=== PATIENT | female | born 1940 | race Caucasian/White ===

== ENCOUNTER 2016-07-13 06:48 | Inpatient (IN) | payer OTHER, MEDICAID, MEDICARE ==
[2016-07-13] VITALS (9 sets, daily range): BP systolic 104–160; BP diastolic 55–75; PULSE 66–100; RESP 14–18; TEMP 97.6–102.8; O2SAT 95–98
[~2016-07-13] VITALS: Ht 160 cm; Wt 100.2 kg
[~2016-07-13 06:48] MED LIST: AMLO5TAB96 PO; ATEN1TAB73 PO; DYAZ37.52 PO; GABA300 PO; MECL25 PO; PHEN60TA PO; ZOCO80TA PO
[2016-07-13] MEDS ORDERED: CEFEPIME INJ 2,000 MG in SODIUM CHLORIDE 0.9% INJ 100 ML IV STA (07:15)
[2016-07-13] MEDS ORDERED: ACETAMINOPHEN 325 MG TAB PO ONE (07:15)
[2016-07-13] MEDS ORDERED: SODIUM CHLOR 0.9% 1000 ML INJ 1,000 ML IV ONE (07:15)
--- NOTE | 2016-07-13 07:44 | RADRPT ---
EXAM DATE/TIME: 07/13/2016 07:33 [facility] COMPARISON: No previous studies available for comparison. INDICATIONS : Fever. MEDICAL HISTORY : None. SURGICAL HISTORY : None. ENCOUNTER: Initial ACUITY: 1 day PAIN SCORE: 0/10 LOCATION: chest FINDINGS: 2 AP views of the chest. The lungs are clear. Cardiomediastinal silhouette within normal limits. No e vidence of pleural effusion or pneumothorax. CONCLUSION: No acute cardiopulmonary disease identified. Car Munoz MD on July 13, 2016 at 7:40 Board Certified Radiologist. This report was verified electronically.
--- NOTE | 2016-07-13 07:55 | RADRPT ---
EXAM DATE/TIME: 07/13/2016 07:36 [facility] COMPARISON: CT BRAIN W/O CONTRAST, January 16, 2011, 15:24. INDICATIONS : Dizziness. RADIATION DOSE: 56.35 CTDIvol (mGy) MEDICAL HISTORY : Seizures. Hypertension. Chronic obstructive pulmonary disease. SURGICAL HISTORY : Thyroid tumor removed. ENCOUNTER: Initial ACUITY: 1 week PAIN SCALE: 0/10 LOCATION: cranial TECHNIQUE: Multiple contiguous axial images were obtained of the head. Using automated exposure control and adj ustment of the mA and/or kV according to patient size, radiation dose was kept as low as reasonably a chievable to obtain optimal diagnostic quality images. FINDINGS: CEREBRUM: The ventricles are normal for age. No evidence of midline shift, mass lesion, hemorrhage or acute in farction. No extra-axial fluid collections are seen. POSTERIOR FOSSA: The cerebellum and brainstem are intact. The 4th ventricle is midline. The cerebellopontine angle i s unremarkable. EXTRACRANIAL: The visualized portion of the orbits is intact. SKULL: The calvaria is intact. No evidence of skull fracture. CONCLUSION: No acute intracranial findings. Car Munoz MD on July 13, 2016 at 7:51 Board Certified Radiologist. This report was verified electronically.
[2016-07-13 08:08] LABS: AUTOMATED NEUTROPHIL # 10.7 TH/MM3 (1.8-7.7); BASOPHIL % 0.4 % (0.0-2.0); EOSINOPHIL % 0.1 % (0.0-4.0); HEMATOCRIT 37.8 % (35.0-46.0); HEMO FLAGS DIFF FINAL; LYMPHOCYTE # 0.6 TH/MM3 (1.0-4.8); MEAN CELL VOLUME 92.5 FL (80.0-100.0); MEAN CORPUSCULAR HEMOGLOBIN 31.5 PG (27.0-34.0); MEAN CORPUSCULAR HGB CONC 34.1 % (32.0-36.0); MONO % 9.3 % (0.0-8.0); NEUT % 85.2 % (16.0-70.0); PLATELET COUNT 229 TH/MM3 (150-450); RED BLOOD COUNT 4.08 MIL/MM3 (4.00-5.30); RED CELL DISTRIBUTION WIDTH 13.1 % (11.6-17.2); WHITE BLOOD COUNT 12.5 TH/MM3 (4.0-11.0)
[2016-07-13 08:17] LABS: APTT (PATIENT) 34.5 SEC (24.3-30.1)
[2016-07-13 08:30] LABS: ALT (GPT) 27 U/L (10-53); ANION GAP 8 MEQ/L (5-15); AST (GOT) 53 U/L (15-37); BICARBONATE 27.7 MEQ/L (21.0-32.0); BLOOD UREA NITROGEN 17 MG/DL (7-18); CHLORIDE 95 MEQ/L (98-107); GLOMERULAR FILTRATION RATE 60 ML/MIN (>89); POTASSIUM 3.6 MEQ/L (3.5-5.1); SODIUM (NA) 131 MEQ/L (136-145)
[2016-07-13 08:44] LABS: ALKALINE PHOSPHATASE 89 U/L (45-117); CREATINE KINASE 1310 U/L (26-192); TOTAL BILIRUBIN ADULT 0.5 MG/DL (0.2-1.0)
[2016-07-13 08:56] LABS: CKMB 1.8 NG/ML (0.5-3.6)
[2016-07-13 09:10] LABS: BACTERIA, URINE FEW /hpf; BLOOD, URINE MOD (NEG); COMMENT (UR) CATH-CULTURE IND; CULTURE IF INDICATED CATH CULTURE IND; GLUCOSE,URINE NEG (NEG); KETONE, URINE NEG (NEG); MUCUS URINE FEW /lpf (OCC); NITRITE,URINE NEG (NEG); SQUAMOUS EPITHELIAL CELL URINE 1 /hpf (0-5); URINE COLOR YELLOW (YELLW/STRAW)
[2016-07-13] MEDS ORDERED: KETOROLAC TROMETHAMINE 30 MG/ML (IVP) VIAL IV PUSH ONE (09:30)
--- NOTE | 2016-07-13 09:39 | PD ---
HPI Chief Complaint: Fall Time Seen by Provider: 07:02 Travel History International Travel<30 days: No Contact w/Intl Traveler<30days: No Traveled to known affect area: No History of Present Illness HPI Patient is a 75 year old female who comes in after a fall at her assisted living. She says for the past 2 weeks she has been feeling dizzy and falling. She fell two weeks ago, but did not come to the hospital. She says today she went to the bathroom and became very dizzy and fell onto her back. She says she hit her head on the carpet, but denies any LOC. She denies any chest pain or SOB. She denies cough. She says she has been urinating frequently. PFSH Past Medical History Hx Anticoagulant Therapy: Yes (BABY ASA) Heart Rhythm Problems: Yes Cardiac Catheterization: No Cardiovascular Problems: Yes (htn) High Cholesterol: Yes Congestive Heart Failure: No Cerebrovascular Accident: Yes (TIA) Diminished Hearing: No Genitourinary: Yes (URGENCY-FREQUENCY) Hypertension: Yes Musculoskeletal: Yes (DISCS REMOVED MANY YEARS AGO) Neurologic: Yes (NEUROPATHY) Respiratory: Yes (COPD) Immunizations Current: Yes Migraines: Yes (RECENT DIAGNOSIS OF "SILENT MIGRAINES" PER NEUROLOGIST) Myocardial Infarction: No Seizures: Yes Menopausal: Yes Past Surgical History Cholecystectomy: Yes Coronary Artery Bypass Graft: No Hysterectomy: Yes Other Surgery: Yes (THYROID TUMOR REMOVED) Social History Alcohol Use: No Tobacco Use: No Substance Use: No Allergies-Medications (Allergen,Severity, Reaction): Coded Allergies: Latex (Verified Allergy, Intermediate, Anaphylaxis, 07/13/16) Iodine (Verified Allergy, Unknown, 07/13/16) Shellfish (Verified Adverse Reaction, Severe, Anaphylaxis, 07/13/16) Codeine (Verified Adverse Reaction, Intermediate, HEADACHE, 07/13/16) Sulfa (Verified Adverse Reaction, Intermediate, VOMITING, 07/13/16) Reported Meds & Prescriptions Reported Meds & Active Scripts Active Reported Phenobarbital 64.8 Mg Tab 129.6 Mg PO HS Triamterene-Hydrochlorothiazide 37.5-25 Mg Cap 1 Cap PO DAILY Simvastatin 80 Mg Tab 80 Mg PO HS Meclizine 25 (Meclizine HCl) 25 Mg Tab 25 Mg PO TID Gabapentin 300 Mg Cap 300 Mg PO BID Atenolol 25 Mg Tab 25 Mg PO DAILY Amlodipine (Amlodipine Besylate) 5 Mg Tab 5 Mg PO BID Review of Systems Except as stated in HPI: all other systems reviewed are Neg General / Constitutional: Positive: Fever Eyes: No: Diploplia HENT: Positive: Vertigo, Lightheadedness, No: Headaches Cardiovascular: No: Chest Pain or Discomfort Respiratory: No: Shortness of Breath Gastrointestinal: No: Nausea, Vomiting, Abdominal Pain Genitourinary: Positive: Urgency, Frequency, No: Dysuria Musculoskeletal: No: Pain Skin: Positive Other (skin tears) Neurologic: No: Weakness, Dizziness Physical Exam Narrative GENERAL: Awake and alert, in no acute distress. SKIN: Focused skin assessment warm/dry. Skin tear to left upper arm. HEAD: Atraumatic. Normocephalic. EYES: Pupils equal and round. No scleral icterus. No injection or drainage. ENT: No nasal bleeding or discharge. Mucous membranes pink and moist. NECK: Trachea midline. No JVD. CARDIOVASCULAR: Regular rate and rhythm. No murmur appreciated. RESPIRATORY: No accessory muscle use. Clear to auscultation. Breath sounds equal bilaterally. GASTROINTESTINAL: Abdomen soft, non-tender, nondistended. MUSCULOSKELETAL: No obvious deformities. No clubbing. No cyanosis. No edema. No tenderness to palpation along the cervical, thoracic or lumbar spine. NEUROLOGICAL: Awake and alert. No obvious cranial nerve deficits. Motor grossly within normal limits. Normal speech. PSYCHIATRIC: Appropriate mood and affect; insight and judgment normal. Data Data Last Documented VS Vital Signs Date Time Temp Pulse Resp B/P Pulse Ox O2 Delivery O2 Flow Rate FiO2 07/13/16 10:38 98.4 70 16 104/73 98 Nasal Cannula 2 Orders Electrocardiogram (07/13/16 07:15) Complete Blood Count With Diff (07/13/16 07:15) Comprehensive Metabolic Panel (07/13/16 07:15) Prothrombin Time / Inr (Pt) (07/13/16 07:15) Act Partial Throm Time (Ptt) (07/13/16 07:15) Lactic Acid Sepsis Protocol (07/13/16 07:15) Ckmb (Isoenzyme) Profile (07/13/16 07:15) Troponin I (07/13/16 07:15) Urinalysis - C+S If Indicated (07/13/16 07:15) Ua Includes Microscopic (07/13/16 07:15) Blood Culture (07/13/16 07:15) Chest, Single Ap (07/13/16 07:15) Ecg Monitoring (07/13/16 07:15) Iv Access Insert/Monitor (07/13/16 07:15) Oximetry (07/13/16 07:15) Acetaminophen (Tylenol) (07/13/16 07:15) Cefepime Inj (Maxipime Inj) (07/13/16 07:15) Sodium Chlor 0.9% 1000 Ml Inj (Ns 1000 M (07/13/16 07:15) Ct Brain W/O Iv Contrast(Rout) (07/13/16 ) Cath For Specimen (07/13/16 07:29) CKMB (07/13/16 06:57) CKMB% (07/13/16 06:57) Urine Culture (07/13/16 09:00) Ketorolac Inj (Toradol Inj) (07/13/16 09:30) Admit Order (Ed Use Only) (07/13/16 ) Labs Laboratory Tests Test 07/13/16 07/13/16 06:57 09:00 Prothrombin Time 11.0 SEC Prothromb Time International 1.0 RATIO Ratio Activated Partial 34.5 SEC Thromboplast Time Sodium Level 131 MEQ/L Potassium Level 3.6 MEQ/L Chloride Level 95 MEQ/L Carbon Dioxide Level 27.7 MEQ/L Anion Gap 8 MEQ/L Blood Urea Nitrogen 17 MG/DL Creatinine 0.92 MG/DL Estimat Glomerular Filtration 60 ML/MIN Rate Random Glucose 138 MG/DL Lactic Acid Level 1.2 mmol/L Calcium Level 8.6 MG/DL Total Bilirubin 0.5 MG/DL Aspartate Amino Transf 53 U/L (AST/SGOT) Alanine Aminotransferase 27 U/L (ALT/SGPT) Alkaline Phosphatase 89 U/L Total Creatine Kinase 1310 U/L Creatine Kinase MB 1.8 NG/ML Creatine Kinase MB % 0.1 % Troponin I LESS THAN 0.02 NG/ML Total Protein 6.9 GM/DL Albumin 2.9 GM/DL White Blood Count 12.5 TH/MM3 Red Blood Count 4.08 MIL/MM3 Hemoglobin 12.9 GM/DL Hematocrit 37.8 % Mean Corpuscular Volume 92.5 FL Mean Corpuscular Hemoglobin 31.5 PG Mean Corpuscular Hemoglobin 34.1 % Concent Red Cell Distribution Width 13.1 % Platelet Count 229 TH/MM3 Mean Platelet Volume 8.4 FL Neutrophils (%) (Auto) 85.2 % Lymphocytes (%) (Auto) 5.0 % Monocytes (%) (Auto) 9.3 % Eosinophils (%) (Auto) 0.1 % Basophils (%) (Auto) 0.4 % Neutrophils # (Auto) 10.7 TH/MM3 Lymphocytes # (Auto) 0.6 TH/MM3 Monocytes # (Auto) 1.2 TH/MM3 Eosinophils # (Auto) 0.0 TH/MM3 Basophils # (Auto) 0.0 TH/MM3 CBC Comment DIFF FINAL Differential Comment Urine Color YELLOW Urine Turbidity HAZY Urine pH 6.0 Urine Specific [place] 1.012 Urine Protein 30 mg/dL Urine Glucose (UA) NEG mg/dL Urine Ketones NEG mg/dL Urine Occult Blood MOD Urine Nitrite NEG Urine Bilirubin NEG Urine Urobilinogen LESS THAN 2.0 MG/DL Urine Leukocyte Esterase LARGE Urine RBC 16 /hpf Urine WBC 165 /hpf Urine WBC Clumps MOD Urine Squamous Epithelial 1 /hpf Cells Urine Bacteria FEW /hpf Urine Mucus FEW /lpf Microscopic Urinalysis Comment CATH-CULTURE IND MDM Medical Decision Making Medical Screen Exam Complete: Yes Emergency Medical Condition: Yes Medical Record Reviewed: Yes Interpretation(s) ECG shows NSR at 84, no ST elevation. Slight ST depression in V4-V6 (less than 0.5mm). Differential Diagnosis Electrolyte abnormality versus sepsis versus pneumonia versus UTI versus CVA Narrative Course Patient is a 75-year-old female comes in after a fall today. She is found to be febrile on arrival. IV established, labs sent. Labs showed elevated white blood cell count. Urinalysis is positive for UTI. CT head and chest x-ray showed no acute abnormalities. Patient given IV fluids, cefepime, Tylenol. She'll be admitted for further management. Diagnosis Primary Impression: UTI (urinary tract infection) Qualified Code: N30.00 - Acute cystitis without hematuria Additional Impression: Sepsis Qualified Code: A41.9 - Sepsis, due to unspecified organism Admitting Information Admitting Physician Requests: Admit Condition: Stable Rena Stahl MD Jul 13, 2016 09:39
[2016-07-13] MEDS ORDERED: SODIUM CHLORIDE 0.9% FLUSH 10 ML FLUSH IV FLUSH PRN (10:45)
[2016-07-13] MEDS ORDERED: MAGNESIUM HYDROXIDE SUSP 30 ML CUP PO PRN (10:45)
[2016-07-13] MEDS ORDERED: NALOXONE HCL 0.4 MG/ML AMP IV PRN (10:45)
[2016-07-13] MEDS ORDERED: ONDANSETRON HCL 4 MG/2 ML VIAL IVP PRN (10:45)
[2016-07-13] MEDS ORDERED: BISACODYL 10 MG SUPP RECTAL PRN (10:45)
[2016-07-13] MEDS ORDERED: SENNOSIDES 8.6 MG TAB PO PRN (10:45)
[2016-07-13] MEDS ORDERED: LACTULOSE SYRUP 20 GM/30 ML CUP PO PRN (10:45)
--- NOTE | 2016-07-13 11:44 | HHI.HP ---
[facility] Service [place] [facility] Primary Care Physician Non-Staff Admission Diagnosis UTI, weakness Diagnoses: (1) Weakness Diagnosis: Principal (2) Sepsis Diagnosis: Principal (3) UTI (urinary tract infection) Diagnosis: Principal (4) Frequent falls Diagnosis: Principal Travel History International Travel<30 Days: No Contact w/Intl Traveler <30 Da: No Traveled to Known Affected Are: No Sepsis Criteria SIRS Criteria (2 or more): Temp > 100.9 or < 96.8, Heart rate over 90, WBC > 29052, < 4000 or > 10% bands Sepsis Criteria (SIRS+source): Infect source susp/known History of Present Illness Mrs. Ortez is a 75-year-old female. She came to the hospital after having a follow home. No fractures are found. She does have some minor lacerations of the left arm and some minor skin abrasions throughout the body. Fever is present along with tachycardia and leukocytosis. Urinary tract infection is found. Patient meets sepsis criteria. No evidence of severe sepsis or septic shock. She is also hyponatremic and has rhabdomyolysis. A slight medical conditions are hypertension hyperlipidemia history of TIA neuropathy COPD and seizure history. She reports that she has had urinary tract infections fairly frequently in the past. She has smoked in the past but is not currently smoking. No other complaints are present at this time. No head trauma. Review of Systems Constitutional: COMPLAINS OF: Fatigue, Fever, DENIES: Chills Eyes: DENIES: Blurred vision, Diplopia Respiratory: DENIES: Cough, Wheezing, Shortness of breath Cardiovascular: DENIES: Chest pain, Palpitations, Syncope Gastrointestinal: DENIES: Abdominal pain, Black stools, Bloody stools Musculoskeletal: DENIES: Joint pain, Muscle aches Integumentary: DENIES: Abnormal pigmentation Hematologic/lymphatic: DENIES: Bruising Immunologic/allergic: DENIES: Eczema Neurologic: COMPLAINS OF: Abnormal gait, Poor Balance, DENIES: Headache Psychiatric: DENIES: Anxiety, Confusion Past Family Social History Past Medical History Hypertension Hyperlipidemia TIA history Uropathy COPD Seizure history Past Surgical History Discectomy Removal of thyroid tumor Cholecystectomy Hysterectomy Reported Medications Reported Meds & Active Scripts Active Allergies: Coded Allergies: Latex (Verified Allergy, Intermediate, Anaphylaxis, 07/13/16) Iodine (Verified Allergy, Unknown, 07/13/16) Shellfish (Verified Adverse Reaction, Severe, Anaphylaxis, 07/13/16) Codeine (Verified Adverse Reaction, Intermediate, HEADACHE, 07/13/16) Sulfa (Verified Adverse Reaction, Intermediate, VOMITING, 07/13/16) Family History Myocardial infarction and lung cancer in father Social History History of smoking, not currently smoking No alcohol or drug abuse Physical Exam Vital Signs Vital Signs Date Time Temp Pulse Resp B/P Pulse Ox O2 Delivery O2 Flow Rate FiO2 07/13/16 10:38 98.4 07/13/16 07:18 16 97 Room Air 07/13/16 06:55 102.8 97 14 160/70 95 Room Air 07/13/16 06:52 102.8 100 16 160/70 96 Physical Exam GENERAL: NAD, A&Ox3 SKIN: Warm and dry. Abrasions and superficial lacerations to left arm HEAD: Normocephalic. EYES: No scleral icterus. No injection or drainage. NECK: Supple, trachea midline. No JVD or lymphadenopathy. CARDIOVASCULAR: Regular rate and rhythm without murmurs, gallops, or rubs. RESPIRATORY: Breath sounds equal bilaterally. No accessory muscle use. GASTROINTESTINAL: Abdomen soft, non-tender, nondistended. MUSCULOSKELETAL: No cyanosis, or edema. Laboratory Laboratory Tests Test 07/13/16 07/13/16 06:57 09:00 White Blood Count 12.5 Red Blood Count 4.08 Hemoglobin 12.9 Hematocrit 37.8 Mean Corpuscular Volume 92.5 Mean Corpuscular Hemoglobin 31.5 Mean Corpuscular Hemoglobin 34.1 Concent Red Cell Distribution Width 13.1 Platelet Count 229 Mean Platelet Volume 8.4 Neutrophils (%) (Auto) 85.2 Lymphocytes (%) (Auto) 5.0 Monocytes (%) (Auto) 9.3 Eosinophils (%) (Auto) 0.1 Basophils (%) (Auto) 0.4 Neutrophils # (Auto) 10.7 Lymphocytes # (Auto) 0.6 Monocytes # (Auto) 1.2 Eosinophils # (Auto) 0.0 Basophils # (Auto) 0.0 CBC Comment DIFF FINAL Differential Comment Prothrombin Time 11.0 Prothromb Time International 1.0 Ratio Activated Partial 34.5 Thromboplast Time Sodium Level 131 Potassium Level 3.6 Chloride Level 95 Carbon Dioxide Level 27.7 Anion Gap 8 Blood Urea Nitrogen 17 Creatinine 0.92 Estimat Glomerular Filtration 60 Rate Random Glucose 138 Lactic Acid Level 1.2 Calcium Level 8.6 Total Bilirubin 0.5 Aspartate Amino Transf 53 (AST/SGOT) Alanine Aminotransferase 27 (ALT/SGPT) Alkaline Phosphatase 89 Total Creatine Kinase 1310 Creatine Kinase MB 1.8 Creatine Kinase MB % 0.1 Troponin I LESS THAN 0.02 Total Protein 6.9 Albumin 2.9 Urine Color YELLOW Urine Turbidity HAZY Urine pH 6.0 Urine Specific [place] 1.012 Urine Protein 30 Urine Glucose (UA) NEG Urine Ketones NEG Urine Occult Blood MOD Urine Nitrite NEG Urine Bilirubin NEG Urine Urobilinogen LESS THAN 2.0 Urine Leukocyte Esterase LARGE Urine RBC 16 Urine WBC 165 Urine WBC Clumps MOD Urine Squamous Epithelial 1 Cells Urine Bacteria FEW Urine Mucus FEW Microscopic Urinalysis Comment CATH-CULTURE IND Date/Time Procedure Status Source Growth 07/13/16 09:00 Urine Culture Received Urine Catheterized Urine Pending 07/13/16 07:06 Aerobic Blood Culture Received Blood Peripheral Pending 07/13/16 07:06 Anaerobic Blood Culture Received Blood Peripheral Pending Result Diagram: 07/13/16 0657 07/13/16 0657 Imaging Last Impressions Chest X-Ray 07/13/16 0715 Signed Impressions: Service Date/Time: Wednesday, July 13, 2016 07:33 - CONCLUSION: No acute cardiopulmonary disease identified. Car Munoz MD Head CT 07/13/16 0000 Signed Impressions: Service Date/Time: Wednesday, July 13, 2016 07:36 - CONCLUSION: No acute intracranial findings. Car Muonz MD Septic Shock Reassessment Heart: Regular rate and rhythm Lungs: Clear Skin: Warm Peripheral Pulses: Bounding Right Radial Bounding Left Radial Capillary Refill: Brisk Assessment and Plan Problem List: (1) Weakness ICD Code: R53.1 Status: Acute (2) Sepsis ICD Code: A41.9 Status: Acute (3) UTI (urinary tract infection) ICD Code: N39.0 Status: Acute (4) Frequent falls ICD Code: R29.6 Status: Acute Assessment and Plan Assessment and plan 75 old female admitted with UTI and sepsis status post fall, with recurrent falls. UTI Sepsis Rocephin Probiotics Follow urine cultures Monitor for resolution of sepsis Global weakness Frequent falls This is likely secondary to sepsis PT will be started after sepsis symptoms improve Hypertension Continue baseline home treatments Follow blood pressures Adjust treatment if needed Hyperlipidemia Continue statin Follow as an outpatient COPD No exacerbation Follow clinically No change to baseline treatments TIA history Neuropathy Seizure history Follow clinically DVT prophylaxis SCDs Physician Certification 2 Midnight Certification Type: Admission for Inpatient Services Order for Inpatient Services The services are ordered in accordance with Medicare regulations or non- Medicare payer requirements, as applicable. In the case of services not specified as inpatient-only, they are appropriately provided as inpatient services in accordance with the 2-midnight benchmark. Estimated LOS (days): 2 days is the estimated time the patient will need to remain in the hospital, assuming treatment plan goals are met and no additional complications. Post-Hospital Plan: Misael Vieyra MD Jul 13, 2016 11:44
[2016-07-13] MEDS ORDERED: GABA300C5 PO (13:26)
[2016-07-13] MEDS ORDERED: MECL1TAB42 PO (13:26)
[2016-07-13] MEDS ORDERED: TRIA37.53 PO (13:26)
[2016-07-13] MEDS ORDERED: SIMV80TA PO (13:26)
[2016-07-13] MEDS ORDERED: AMLO5TAB2 PO (13:26)
[2016-07-13] MEDS ORDERED: ATEN25TA PO (13:26)
[2016-07-13] MEDS ORDERED: PHENO60 PO (13:30)
[2016-07-13] MEDS: SODIUM CHLOR 0.9% 1000 ML INJ 1,000 ML IV SCH ×2 (13:59→18:22)
[2016-07-13] MEDS: LACTOBACILLUS ACIDOPHILUS TAB PO SCH ×2 (13:59→18:00)
[2016-07-13] MEDS: cefTRIAXone INJ 1,000 MG in SODIUM CHLORIDE 0.9% INJ 100 ML IV SCH (14:30)
[2016-07-13] MEDS: ACETAMINOPHEN/HYDROcodone 325 MG/7.5 MG TAB PO PRN (18:29)
[2016-07-13] MEDS: SODIUM CHLORIDE 0.9% FLUSH 10 ML FLUSH IV FLUSH SCH (21:00)
[2016-07-13] MEDS ORDERED: GABAPENTIN 300 MG CAP PO ONE (22:45)
[2016-07-13] MEDS: PHENobarbital 32.4 MG TAB PO SCH (23:18)
[2016-07-13] MEDS: DOCUSATE SODIUM 50 MG/SENNA 8.6 MG TAB PO SCH (23:18)
[2016-07-14] VITALS (10 sets, daily range): BP systolic 104–180; BP diastolic 58–72; PULSE 66–85; RESP 16–19; TEMP 97.2–99.8; O2SAT 92–96
[2016-07-14] MEDS: SODIUM CHLOR 0.9% 1000 ML INJ 1,000 ML IV SCH ×3 (03:33→18:05)
[2016-07-14] MEDS: ACETAMINOPHEN/HYDROcodone 325 MG/7.5 MG TAB PO PRN (05:14)
[2016-07-14] MEDS: cloNIDine HCL 0.1 MG TAB PO PRN (05:36)
[2016-07-14 08:27] LABS: AUTOMATED NEUTROPHIL # 5.4 TH/MM3 (1.8-7.7); BASOPHIL % 0.5 % (0.0-2.0); EOSINOPHIL # 0.1 TH/MM3 (0-0.4); EOSINOPHIL % 1.2 % (0.0-4.0); HEMATOCRIT 30.9 % (35.0-46.0); HEMO FLAGS DIFF FINAL; LYMPHOCYTE # 0.7 TH/MM3 (1.0-4.8); MEAN CELL VOLUME 92.1 FL (80.0-100.0); MEAN CORPUSCULAR HEMOGLOBIN 31.3 PG (27.0-34.0); MEAN CORPUSCULAR HGB CONC 33.9 % (32.0-36.0); MONO % 9.7 % (0.0-8.0); NEUT % 78.6 % (16.0-70.0); PLATELET COUNT 179 TH/MM3 (150-450); RED BLOOD COUNT 3.36 MIL/MM3 (4.00-5.30); RED CELL DISTRIBUTION WIDTH 12.9 % (11.6-17.2); WHITE BLOOD COUNT 6.9 TH/MM3 (4.0-11.0)
[2016-07-14 08:53] LABS: BICARBONATE 26.4 MEQ/L (21.0-32.0); PHENOBARBITAL 20.5 MCG/ML (15.0-40.0); POTASSIUM 3.2 MEQ/L (3.5-5.1)
[2016-07-14] MEDS: MECLIZINE HCL 25 MG TAB PO SCH ×3 (09:00→18:00)
[2016-07-14] MEDS: SODIUM CHLORIDE 0.9% FLUSH 10 ML FLUSH IV FLUSH SCH ×2 (09:00→20:32)
[2016-07-14] MEDS: DOCUSATE SODIUM 50 MG/SENNA 8.6 MG TAB PO SCH ×2 (09:36→20:28)
[2016-07-14] MEDS: GABAPENTIN 300 MG CAP PO SCH ×2 (09:36→20:28)
[2016-07-14] MEDS: LACTOBACILLUS ACIDOPHILUS TAB PO SCH ×3 (09:36→17:58)
[2016-07-14] MEDS: ATENOLOL 25 MG TAB PO SCH (09:36)
[2016-07-14] MEDS: amLODIPine BESYLATE 5 MG TAB PO SCH ×2 (09:37→20:28)
[2016-07-14] MEDS ORDERED: POTASSIUM CHLORIDE 10 MEQ CONTROLLED RELEASE TAB PO ONE (10:45)
--- NOTE | 2016-07-14 11:04 | HHI.PR ---
Subjective Remarks Patient still feels weak. Physical therapy assessment pending. No new complaints. She does feel better than yesterday. She is no longer septic. Objective Vital Signs Date Time Temp Pulse Resp B/P Pulse Ox O2 Delivery O2 Flow Rate FiO2 07/14/16 08:02 74 07/14/16 07:45 99.8 74 16 117/58 93 07/14/16 06:43 18 07/14/16 05:37 180/66 07/14/16 04:00 98.2 80 19 147/68 94 07/14/16 02:54 81 07/14/16 00:00 98.2 77 18 104/62 96 07/13/16 20:00 97.9 69 17 120/75 97 07/13/16 15:54 66 07/13/16 15:00 97.6 70 16 110/55 95 I/O 07/13/16 07/13/16 07/13/16 07/14/16 07/14/16 07/14/16 06:59 14:59 22:59 06:59 14:59 22:59 Intake Total 720 ml 240 ml Output Total 400 ml Balance 320 ml 240 ml Intake Oral 720 ml 240 ml Output Urine Total 400 ml # Voids 9 15 # Bowel Movements 0 0 Result Diagram: 07/14/16 0706 07/14/16 0706 Objective Remarks GENERAL: NAD, A&Ox3 SKIN: Warm and dry. HEAD: Normocephalic. EYES: No scleral icterus. No injection or drainage. NECK: Supple, trachea midline. No JVD or lymphadenopathy. CARDIOVASCULAR: Regular rate and rhythm without murmurs, gallops, or rubs. RESPIRATORY: Breath sounds equal bilaterally. No accessory muscle use. GASTROINTESTINAL: Abdomen soft, non-tender, nondistended. MUSCULOSKELETAL: No cyanosis, or edema. A/P Problem List: (1) Frequent falls ICD Code: R29.6 (2) UTI (urinary tract infection) ICD Code: N39.0 (3) Sepsis ICD Code: A41.9 (4) Weakness ICD Code: R53.1 Assessment and Plan Assessment and plan 75 old female admitted with UTI and sepsis status post fall, with recurrent falls. Global weakness remained. Physical therapy pending. Improvement over next 24 hours and physical therapy assessment will help determine the patient is to go to a shelter facility versus a for discharge home. Following urine culture. She is no longer septic. UTI Sepsis Rocephin Probiotics Follow urine cultures Sepsis now resolved. Global weakness Frequent falls This is likely secondary to sepsis PT will be started after sepsis symptoms improve Hypertension Continue baseline home treatments Follow blood pressures Adjust treatment if needed Hyperlipidemia Continue statin Follow as an outpatient COPD No exacerbation Follow clinically No change to baseline treatments TIA history Neuropathy Seizure history Follow clinically DVT prophylaxis Misael Ellis MD Jul 14, 2016 11:04 am
[2016-07-14] MEDS: TRIAMTERENE/HCTZ 37.5 MG/25 MG CAP PO SCH (12:31)
[2016-07-14] MEDS: cefTRIAXone INJ 1,000 MG in SODIUM CHLORIDE 0.9% INJ 100 ML IV SCH (12:31)
[2016-07-14] MEDS: ACETAMINOPHEN/HYDROcodone 325 MG/5 MG TAB PO PRN ×2 (12:40→19:29)
--- NOTE | 2016-07-14 14:10 | EKG ---
Date Performed: 07/13/2016 Time Performed: 08:15:45 PTAGE: 75 years EKG: Sinus rhythm NONSPECIFIC ST & T-WAVE ABNORMALITY Compared to previous tracing, no significant change BORDERLINE E CG PREVIOUS TRACING : 04/17/2015 12.06 DOCTOR: Sharan Espinosa Interpretating Date/Time 07/14/2016 14:08:01
[2016-07-14] MEDS: PRAVASTATIN SOD 80 MG TAB PO SCH (20:28)
[2016-07-14] MEDS: PHENobarbital 32.4 MG TAB PO SCH (20:32)
[2016-07-15] VITALS (7 sets, daily range): BP systolic 128–172; BP diastolic 60–78; PULSE 60–76; RESP 16–20; TEMP 96.6–97.8; O2SAT 90–95
[2016-07-15] MEDS: SODIUM CHLOR 0.9% 1000 ML INJ 1,000 ML IV SCH (01:41)
[2016-07-15] MEDS: ACETAMINOPHEN/HYDROcodone 325 MG/7.5 MG TAB PO PRN ×4 (01:46→17:56)
[2016-07-15] MEDS: MECLIZINE HCL 25 MG TAB PO SCH ×3 (08:25→17:58)
[2016-07-15] MEDS: TRIAMTERENE/HCTZ 37.5 MG/25 MG CAP PO SCH (08:25)
[2016-07-15] MEDS: LACTOBACILLUS ACIDOPHILUS TAB PO SCH ×3 (08:25→17:56)
[2016-07-15] MEDS: GABAPENTIN 300 MG CAP PO SCH ×2 (08:25→21:24)
[2016-07-15] MEDS: ATENOLOL 25 MG TAB PO SCH (08:25)
[2016-07-15] MEDS: amLODIPine BESYLATE 5 MG TAB PO SCH ×2 (08:25→21:24)
[2016-07-15] MEDS: DOCUSATE SODIUM 50 MG/SENNA 8.6 MG TAB PO SCH ×2 (08:25→21:25)
[2016-07-15] MEDS: SODIUM CHLORIDE 0.9% FLUSH 10 ML FLUSH IV FLUSH SCH ×2 (08:27→21:26)
[2016-07-15] MEDS: cloNIDine HCL 0.1 MG TAB PO PRN (09:36)
[2016-07-15] MEDS ORDERED: POTASSIUM CHLORIDE 10 MEQ CONTROLLED RELEASE TAB PO ONE (10:30)
[2016-07-15] MEDS ORDERED: CIPR-9 PO (10:40)
--- NOTE | 2016-07-15 10:45 | HHI.PR ---
Subjective Remarks Patient seen in follow-up for sepsis secondary to UTI, deconditioning. She reports she has been having nausea and vomiting this morning and does not feel well enough for SNF. Feels generally weak. Physical therapy suggested assisted facility placement for rehabilitation. Patient is agreeable to go tomorrow if she feels better. Objective Vitals Vital Signs Date Time Temp Pulse Resp B/P Pulse Ox O2 Delivery O2 Flow Rate FiO2 07/15/16 08:00 96.8 69 20 172/78 93 07/15/16 04:00 97.8 76 18 141/63 95 07/15/16 00:00 97.2 72 16 128/60 94 07/14/16 20:51 67 07/14/16 20:00 97.6 85 18 160/72 95 07/14/16 16:00 97.2 66 18 118/59 93 07/14/16 12:00 97.5 80 18 126/60 92 I/O 07/14/16 07/14/16 07/14/16 07/15/16 07/15/16 07/15/16 07:00 15:00 23:00 07:00 15:00 23:00 Intake Total 240 ml 720 ml 1870 ml Output Total 200 ml 700 ml Balance 240 ml 720 ml -200 ml 1170 ml Intake Oral 240 ml 720 ml 480 ml IV Total 1390 ml Output Urine Total 200 ml 700 ml # Voids 15 8 3 4 # Bowel Movements 0 0 Result Diagram: 07/14/16 0706 07/14/16 0706 Imaging Last Impressions Chest X-Ray 07/13/16 0715 Signed Impressions: Service Date/Time: Wednesday, July 13, 2016 07:33 - CONCLUSION: No acute cardiopulmonary disease identified. Car Munoz MD Head CT 07/13/16 0000 Signed Impressions: Service Date/Time: Wednesday, July 13, 2016 07:36 - CONCLUSION: No acute intracranial findings. Car Munoz MD Objective Remarks GENERAL: Elderly female in no apparent distress. CARDIOVASCULAR: Normal rate and regular rhythm without murmurs, gallops, or rubs. RESPIRATORY: Good respiratory efforts. Breath sounds equal and clear to auscultation bilaterally. GASTROINTESTINAL: Abdomen soft, non-tender, non-distended. Normal active bowel sounds MUSCULOSKELETAL: Extremities without cyanosis, or edema. NEURO: Alert & Oriented x4 to person, place, time, situation. Moves all ext x4 PSYCH: Appropriate mood and affect. A/P Problem List: (1) Weakness ICD Code: R53.1 Status: Acute (2) Sepsis ICD Code: A41.9 Status: Acute (3) UTI (urinary tract infection) ICD Code: N39.0 Status: Acute (4) Frequent falls ICD Code: R29.6 Status: Acute Assessment and Plan 75 old female admitted with UTI and sepsis status post fall, with recurrent falls. Global weakness remained. Physical therapy recommends assisted facility placement for rehabilitation. Sepsis resolving. Urine culture grew Klebsiella that is sensitive to most antibiotics tested. UTI Sepsis Urine culture grew Klebsiella pneumonia. Patient initially treated Rocephin. Will switch to oral ciprofloxacin. Probiotics Sepsis now resolved. Discontinue IV fluids. Nausea: Antiemetics. Check BMP. Monitor for resolution of symptoms. Global weakness Frequent falls Probably secondary to sepsis and UTI. Patient has had some level of deconditioning prior to admission as well. Continue physical therapy. Need assisted facility placement. Hypertension: BP elevated this morning. IV fluids discontinued. Continue to monitor. Clonidine as needed Continue home dose Norvasc, Tenormin, and Dyazide. Adjust treatment if needed Hypokalemia: Recheck BMP today. Replace as indicated. Hyperlipidemia Continue statin Follow as an outpatient COPD No exacerbation Follow clinically No change to baseline treatments TIA history Neuropathy Seizure history Migraines Continue home medications. Follow clinically. Head CT negative. DVT prophylaxis SCDs Discharge Planning Discharge to SNF tomorrow if stable. Problem Qualifiers (1) Sepsis: Qualified Code: A41.9 - Sepsis, due to unspecified organism (2) UTI (urinary tract infection): Qualified Code: N30.00 - Acute cystitis without hematuria Robert De La Torre MD Jul 15, 2016 10:45
[2016-07-15] MEDS: CIPROFLOXACIN 500 MG TAB PO SCH ×2 (11:35→21:25)
[2016-07-15 12:06] LABS: BICARBONATE 26.6 MEQ/L (21.0-32.0); POTASSIUM 3.6 MEQ/L (3.5-5.1)
[2016-07-15] MEDS: PRAVASTATIN SOD 80 MG TAB PO SCH (21:24)
[2016-07-15] MEDS: ACETAMINOPHEN/HYDROcodone 325 MG/5 MG TAB PO PRN (21:25)
[2016-07-15] MEDS: PHENobarbital 32.4 MG TAB PO SCH (21:25)
[2016-07-16] VITALS (8 sets, daily range): BP systolic 116–179; BP diastolic 58–95; PULSE 63–84; RESP 16–20; TEMP 96.3–98.3; O2SAT 94–96
[2016-07-16] MEDS: CIPROFLOXACIN 500 MG TAB PO SCH ×2 (08:38→21:53)
[2016-07-16] MEDS: amLODIPine BESYLATE 5 MG TAB PO SCH ×2 (08:38→21:53)
[2016-07-16] MEDS: TRIAMTERENE/HCTZ 37.5 MG/25 MG CAP PO SCH (08:38)
[2016-07-16] MEDS: GABAPENTIN 300 MG CAP PO SCH ×2 (08:38→21:54)
[2016-07-16] MEDS: LACTOBACILLUS ACIDOPHILUS TAB PO SCH ×3 (08:38→18:43)
[2016-07-16] MEDS: ATENOLOL 25 MG TAB PO SCH (08:38)
[2016-07-16] MEDS: MECLIZINE HCL 25 MG TAB PO SCH ×3 (08:39→18:00)
[2016-07-16] MEDS: DOCUSATE SODIUM 50 MG/SENNA 8.6 MG TAB PO SCH ×2 (08:40→21:53)
[2016-07-16] MEDS: ACETAMINOPHEN/HYDROcodone 325 MG/5 MG TAB PO PRN (08:47)
[2016-07-16] MEDS: SODIUM CHLORIDE 0.9% FLUSH 10 ML FLUSH IV FLUSH SCH ×2 (08:48→21:00)
--- NOTE | 2016-07-16 08:49 | HHI.DS ---
Discharge Summary Admission Date Jul 13, 2016 at 10:41 Discharge Date: Jul 16, 2016 Admitting Diagnosis UTI, weakness (1) Weakness ICD Code: R53.1 Diagnosis: Principal (2) Sepsis ICD Code: A41.9 Diagnosis: Principal (3) UTI (urinary tract infection) ICD Code: N39.0 Diagnosis: Principal (4) Frequent falls ICD Code: R29.6 Diagnosis: Principal Procedures none Brief History - From Admission Mrs. Ortez is a 75-year-old female. She came to the hospital after having a follow home. No fractures are found. She does have some minor lacerations of the left arm and some minor skin abrasions throughout the body. Fever is present along with tachycardia and leukocytosis. Urinary tract infection is found. Patient meets sepsis criteria. No evidence of severe sepsis or septic shock. She is also hyponatremic and has rhabdomyolysis. A slight medical conditions are hypertension hyperlipidemia history of TIA neuropathy COPD and seizure history. She reports that she has had urinary tract infections fairly frequently in the past. She has smoked in the past but is not currently smoking. No other complaints are present at this time. No head trauma. CBC/BMP: 07/14/16 0706 07/15/16 1116 Significant Findings Laboratory Tests Test 07/13/16 07/14/16 07/15/16 09:00 07:06 11:16 Urine Turbidity HAZY (CLEAR) Urine Protein 30 mg/dL (NEG-TRACE) Urine Occult Blood MOD (NEG) Urine Leukocyte Esterase LARGE (NEG) Urine RBC 16 /hpf (0-3) Urine WBC 165 /hpf (0-5) Urine WBC Clumps MOD (NONE) Urine Bacteria FEW /hpf (NONE) Urine Mucus FEW /lpf (OCC) Red Blood Count 3.36 MIL/MM3 (4.00-5.30) Hemoglobin 10.5 GM/DL (11.6-15.3) Hematocrit 30.9 % (35.0-46.0) Neutrophils (%) (Auto) 78.6 % (16.0-70.0) Monocytes (%) (Auto) 9.7 % (0.0-8.0) Lymphocytes # (Auto) 0.7 TH/MM3 (1.0-4.8) Sodium Level 133 MEQ/L 135 MEQ/L (136-145) (136-145) Potassium Level 3.2 MEQ/L (3.5-5.1) Creatinine 0.41 MG/DL 0.31 MG/DL (0.50-1.00) (0.50-1.00) Random Glucose 116 MG/DL 108 MG/DL (74-106) (74-106) Calcium Level 7.7 MG/DL 8.1 MG/DL (8.5-10.1) (8.5-10.1) Blood Urea Nitrogen 4 MG/DL (7-18) Imaging Last Impressions Chest X-Ray 07/13/16 0715 Signed Impressions: Service Date/Time: Wednesday, July 13, 2016 07:33 - CONCLUSION: No acute cardiopulmonary disease identified. Car Munoz MD Head CT 07/13/16 0000 Signed Impressions: Service Date/Time: Wednesday, July 13, 2016 07:36 - CONCLUSION: No acute intracranial findings. Car Munoz MD PE at Discharge GENERAL: Elderly female in no apparent distress. CARDIOVASCULAR: Normal rate and regular rhythm without murmurs RESPIRATORY: Good respiratory efforts. Breath sounds equal and clear to auscultation bilaterally. GASTROINTESTINAL: Abdomen soft, non-tender, non-distended. Normal active bowel sounds MUSCULOSKELETAL: Extremities without edema. NEURO: Alert & Oriented x4 to person, place, time, situation. Moves all ext x4 PSYCH: Appropriate mood and affect. Pt update on day of discharge Pt feels well, no CP/SOB/N/v. hasn't yet ordered breakfast. not too excited about going to rehab but understands the need for it. hopes to be able to go to the one close to where she lives. Hospital Course 75 old female admitted with UTI and sepsis status post fall, with recurrent falls. Global weakness remained. Physical therapy recommends [facility] facility [facility] for [facility]. Sepsis resolving. Urine culture grew Klebsiella that is sensitive to most antibiotics tested. Patient initially treated Rocephin. continue probiotics Sepsis now resolved. Nausea: resolved Global weakness Frequent falls Probably secondary to sepsis and UTI. Patient has had some level of deconditioning prior to admission as well. Continue physical therapy. Need jail facility placement. Hypertension: better controlled. Continue home dose Norvasc, Tenormin, and Dyazide. Monitor BP's as an outpatient and adjust treatment as needed Pt Condition on Discharge: Stable Discharge Disposition: Discharge to SNF Discharge Time: > 30 minutes Discharge Instructions DIET: Follow Instructions for: Heart Healthy Diet Activities you can perform: Regular-No Restrictions Follow up Referrals: PCP Follow-up - 1 Week New Medications: Ciprofloxacin (Cipro) 500 Mg Tab 500 MG PO BID Infection #10 Ref 0 TAB Lactobacillus Acidophilus (Acidophilus/l-Sporogenes) 1 Tab Tab 1 TAB PO TID Days 30 TAB Continued Medications: Amlodipine (Amlodipine) 5 Mg Tab 5 MG PO BID Blood Pressure Management #30 Ref 0 TAB Atenolol (Atenolol) 25 Mg Tab 25 MG PO DAILY Blood Pressure Management #30 TAB Gabapentin (Gabapentin) 300 Mg Cap 300 MG PO BID #60 Ref 0 CAP Meclizine HCl (Meclizine 25) 25 Mg Tab 25 MG PO TID Phenobarbital (Phenobarbital) 64.8 Mg Tab 129.6 MG PO HS Control Seizures #90 Ref 0 TAB Simvastatin (Simvastatin) 80 Mg Tab 80 MG PO HS Cholesterol Management #30 Ref 0 TAB Triamterene-Hydrochlorothiazide (Triamterene-Hydrochlorothiazide) 37.5-25 Mg Cap 1 CAP PO DAILY #30 Ref 0 CAP Litzy Kelly MD Jul 16, 2016 08:49
[2016-07-16] MEDS ORDERED: LACT PO (08:57)
[2016-07-16] MEDS: cloNIDine HCL 0.1 MG TAB PO PRN (20:44)
[2016-07-16] MEDS: PRAVASTATIN SOD 80 MG TAB PO SCH (21:53)
[2016-07-16] MEDS: PHENobarbital 32.4 MG TAB PO SCH (21:53)
[2016-07-17] VITALS: BP 137/82; PULSE 104; RESP 20; TEMP 98; O2SAT 94
[2016-07-17 04:00] VITALS: BP 132/60; PULSE 71; RESP 20; TEMP 98; O2SAT 95
[2016-07-17] MEDS: ACETAMINOPHEN/HYDROcodone 325 MG/7.5 MG TAB PO PRN (05:40)
[2016-07-17 08:00] VITALS: BP 133/61; PULSE 66; RESP 16; TEMP 96.2; O2SAT 91
[2016-07-17] MEDS: amLODIPine BESYLATE 5 MG TAB PO SCH (09:42)
[2016-07-17] MEDS: ATENOLOL 25 MG TAB PO SCH (09:42)
[2016-07-17] MEDS: CIPROFLOXACIN 500 MG TAB PO SCH (09:42)
[2016-07-17] MEDS: MECLIZINE HCL 25 MG TAB PO SCH ×2 (09:42→14:17)
[2016-07-17] MEDS: GABAPENTIN 300 MG CAP PO SCH (09:42)
[2016-07-17] MEDS: LACTOBACILLUS ACIDOPHILUS TAB PO SCH ×2 (09:42→14:17)
[2016-07-17] MEDS: DOCUSATE SODIUM 50 MG/SENNA 8.6 MG TAB PO SCH (09:43)
[2016-07-17] MEDS: TRIAMTERENE/HCTZ 37.5 MG/25 MG CAP PO SCH (09:43)
[2016-07-17] MEDS: SODIUM CHLORIDE 0.9% FLUSH 10 ML FLUSH IV FLUSH SCH (09:43)
--- NOTE | 2016-07-17 10:51 | HHI.PR ---
Subjective Remarks states she had a headache this morning but took some meds and that helped. pt states that she has been urinating a frequently and this frustrates her and she is worried she may have another UTI. no burning w urination, no fevers or chills Objective Vitals Vital Signs Date Time Temp Pulse Resp B/P Pulse Ox O2 Delivery O2 Flow Rate FiO2 07/17/16 08:00 96.2 66 16 133/61 91 07/17/16 04:00 98.0 71 20 132/60 95 07/17/16 00:00 98.0 104 20 137/82 94 07/16/16 21:52 71 139/65 07/16/16 20:02 71 07/16/16 20:00 98.3 84 20 179/95 94 07/16/16 16:33 97.6 66 20 116/58 96 07/16/16 12:32 96.3 65 20 138/65 95 I/O 07/16/16 07/16/16 07/16/16 07/17/16 07/17/16 07/17/16 07:00 15:00 23:00 07:00 15:00 23:00 Intake Total 800 ml 220 ml Output Total 400 ml 500 ml 400 ml Balance 400 ml -500 ml -180 ml Intake Oral 800 ml 220 ml Output Urine Total 400 ml 500 ml 400 ml # Voids 9 1 # Bowel Movements 1 0 Result Diagram: 07/14/16 0706 07/15/16 1116 Imaging Last Impressions Chest X-Ray 07/13/16 0715 Signed Impressions: Service Date/Time: Wednesday, July 13, 2016 07:33 - CONCLUSION: No acute cardiopulmonary disease identified. Car Munoz MD Head CT 07/13/16 0000 Signed Impressions: Service Date/Time: Wednesday, July 13, 2016 07:36 - CONCLUSION: No acute intracranial findings. Car Munoz MD Objective Remarks GENERAL: Elderly female in no apparent distress. CARDIOVASCULAR: Normal rate and regular rhythm without murmurs RESPIRATORY: Good respiratory efforts. Breath sounds equal and clear to auscultation bilaterally. GASTROINTESTINAL: Abdomen soft, non-tender, non-distended. Normal active bowel sounds MUSCULOSKELETAL: Extremities without edema. able to get out of bed and sit in bedside commode NEURO: Alert & Oriented x4 to person, place, time, situation. Moves all ext x4 PSYCH: Appropriate mood and affect. Procedures none A/P Problem List: (1) Weakness ICD Code: R53.1 Status: Acute (2) Sepsis ICD Code: A41.9 Status: Acute (3) UTI (urinary tract infection) ICD Code: N39.0 Status: Acute (4) Frequent falls ICD Code: R29.6 Status: Acute Assessment and Plan 75 old female admitted with UTI and sepsis status post fall, with recurrent falls. Global weakness remained. Physical therapy recommends [facility] facility placement for rehabilitation. Sepsis resolving. Urine culture grew Klebsiella that is sensitive to most antibiotics tested. Patient initially treated Rocephin. continue probiotics. on cipro. pt complains again of urinary frequency. will check another u/a as pt states that it is bothering her Sepsis now resolved. Nausea: resolved Global weakness Frequent falls Probably secondary to sepsis and UTI. Patient has had some level of deconditioning prior to admission as well. Continue physical therapy. Need [facility] facility placement. Hypertension: better controlled. Continue home dose Norvasc, Tenormin, and Dyazide. Monitor BP's as an outpatient and adjust treatment as needed Discharge Planning CM waiting on authorization for discharge. pt complaining on again having urinary frequency, check u/a and f/u on results Problem Qualifiers (1) Sepsis: Qualified Code: A41.9 - Sepsis, due to unspecified organism (2) UTI (urinary tract infection): Qualified Code: N30.00 - Acute cystitis without hematuria Litzy Kelly MD Jul 17, 2016 10:51
[2016-07-17 12:00] VITALS: BP 148/65; PULSE 58; RESP 16; TEMP 96.9; O2SAT 93
[2016-07-17 13:10] LABS: BLOOD, URINE TRACE (NEG); COMMENT (UR) CULT NOT INDICATED; CULTURE IF INDICATED CULT NOT INDICATED; GLUCOSE,URINE NEG (NEG); KETONE, URINE NEG (NEG); MUCUS URINE FEW /lpf (OCC); NITRITE,URINE NEG (NEG); SQUAMOUS EPITHELIAL CELL URINE 1 /hpf (0-5); URINE COLOR LIGHT-YELLOW (YELLW/STRAW)
[2016-07-17 15:10] VITALS: PULSE 58
== END 2016-07-17 15:25 | DRG 872 ==
LOC: NEPC 06:48 → NEDA 10:41 → HOCA 15:07
PROVIDERS: ADMIT Hospitalist; ATTEND Hospitalist
DX: A41.9 Sepsis, unspecified organism (principal); M62.82 Rhabdomyolysis; N39.0 Urinary tract infection, site not specified; B96.1 Klebsiella pneumoniae [K. pneumoniae] as the cause of diseases classified elsewhere; E87.1 Hypo-osmolality and hyponatremia; G62.9 Polyneuropathy, unspecified; E87.6 Hypokalemia; R56.9 Unspecified convulsions; J44.9 Chronic obstructive pulmonary disease, unspecified; Z87.891 Personal history of nicotine dependence; I10 Essential (primary) hypertension; E78.5 Hyperlipidemia, unspecified; Z86.73 Personal history of transient ischemic attack (TIA), and cerebral infarction without residual deficits; Z87.440 Personal history of urinary (tract) infections; R29.6 Repeated falls; G43.909 Migraine, unspecified, not intractable, without status migrainosus
CPT/HCPCS: 70450; 71010; 76937; 80048; 80053; 80184; 81001; 82550; 82552; 83605; 84484; 85025; 85610; 85730; 87040; 87077; 87086; 87186; 93005; 96361; 96365; 96375; J0692; J0696; J1885; J2405; J7030; P9612